=== PATIENT | male | born 1945 | race Caucasian/White ===

== ENCOUNTER → 2023-11-05 10:14 | Outpatient (REF) | payer OTHER, SELFPAY | LOC: RAD 10:14 | PROVIDERS: ATTENDING PHYSICIAN Family Medicine | DX: M25.569 Pain in unspecified knee (principal) | CPT/HCPCS: 73564 ==

== ENCOUNTER → 2024-03-06 07:20 | Outpatient (REF) | payer OTHER, SELFPAY | LOC: EMG 07:20 | PROVIDERS: ATTENDING PHYSICIAN Family Medicine | DX: G60.8 Other hereditary and idiopathic neuropathies (principal); R26.9 Unspecified abnormalities of gait and mobility | CPT/HCPCS: 70450; 95886; 95911 ==